=== PATIENT | female | born 1985 | race Caucasian/White ===

== ENCOUNTER 2021-03-30 13:01 | Observation (INO) | payer BC ==
[2021-03-30] MEDS ORDERED: Lorazepam 2 MG/ML VIAL ONE (13:52)
[2021-03-30 13:54] LABS: #Eosinphils 0.1 10x3/uL (0.0-0.5); #Monocytes 0.5 10x3/uL (0.0-1.1); %Basophils 0.7 % (0.0-2.0); %Eosinophils 1.5 % (0.0-6.0); %Lymphocytes 20.2 % (18.0-47.0); %Neutrophils 68.1 % (40.0-75.0); Hemoglobin 12.9 g/dL (12.0-15.5); Mean Corpuscular HGB CONC 33.9 g/dL (32.0-36.0); Mean Corpuscular Hemoglobin 28.9 pg (27.0-33.0); Mean Platelet Volume 9.1 fl (7.4-10.4); Platelet Count 272 10x3/uL (150-450); RBC Distribution Width 13.2 % (11.5-14.5); Red Blood Cell (RBC) Count 4.47 10x6/uL (3.90-5.03); White Blood Cell (WBC) Count 5.9 10x3/uL (3.5-10.5)
[2021-03-30 14:16] LABS: ALT (SGPT) 18 U/L (8-55); AST (SGOT) 20 U/L (5-34); Albumin 4.4 g/dL (3.5-5.0); Alkaline Phosphatase 76 U/L (40-110); Anion Gap 18 mmol/L (10-20); BUN (Urea Nitrogen) 15 mg/dL (7.0-18.7); Bilirubin, Total 0.4 mg/dL (0.2-1.2); CK (CPK) 88 U/L (29-168); Calc. Creatinine Clearance 0 mL/min (70-130); Calcium 9.2 mg/dL (7.8-10.44); Carbon Dioxide 16 mmol/L (22-29); Chloride 109 mmol/L (98-107); Globulin 2.7 g/dL (2.4-3.5); Glucose 92 mg/dL (70-105); Lipase 36 U/L (8-78); Potassium 3.7 mmol/L (3.5-5.1); Protein, Total 7.1 g/dL (6.0-8.3); Sodium 139 mmol/L (136-145)
[2021-03-30] MEDS ORDERED: Diltiazem 125 MG/25 ML ONE (16:22)
[2021-03-30] MEDS ORDERED: Metoprolol Tartrate 5 MG/5 ML VIAL ONE ×3 (17:48→18:34)
[2021-03-30] MEDS ORDERED: Guaifenesin DM 100-10/5 ML UDCUP PO PRN (20:20)
[2021-03-30] MEDS ORDERED: Zolpidem Tartrate 5 MG TAB PO PRN (20:20)
[2021-03-30] MEDS ORDERED: Senokot S 8.6-50 MG TAB PO PRN (20:20)
[2021-03-30] MEDS ORDERED: Acetaminophen 325 MG TAB PO PRN (20:20)
[2021-03-30] MEDS ORDERED: Calcium Carbonate 500 MG ChewTAB PO PRN (20:20)
[2021-03-30] MEDS ORDERED: Potassium Chloride 20 MEQ TAB PO SCH (20:30)
[2021-03-30] MEDS ORDERED: Lactated Ringer's 1,000 ML IV SCH (20:30)
[2021-03-30 20:38] LABS: Bilirubin Neg (Negative); Blood, Urine Negative (Negative); Clarity Clear (Clear); Glucose, Urine (Dipstick) Normal (Negative); Ketone, Urine Negative (Negative); Leukocyte Negative (Negative); Nitrite Negative (Negative); Protein, Urine (Dipstick) Negative (Neg-Trace); Specific Gravity, Urine 1.005 (1.002-1.036); Urobilinogen Normal mg/dL (Less than 2)
[2021-03-30] MEDS ORDERED: Lorazepam 1 MG TAB PO SCH (21:00)
[2021-03-30 21:17] LABS: SARS-CoV-2 NAA Rapid Test DETECTED (NotDetected)
[2021-03-30 21:26] LABS: Magnesium 1.8 mg/dL (1.6-2.6)
[2021-03-30] MEDS ORDERED: Magnesium Sulfate/D5W 1 GM/100 ML BAG IVPB SCH (23:15)
[2021-03-31 02:22] LABS: Pregnancy Test - Urine (BHCG) Negative (Negative); Pregu Control Background? CLEAR/WHITE (CLR/WHITE); Pregu Control Bar Appear? YES (CONTROL BAR); Specific Gravity 1.005 (1.002-1.036)
[2021-03-31 02:31] LABS: Amphetamine Detected (NotDetected); Barbiturates Screen Not Detected (NotDetected); Benzodiazepine Screen Detected (NotDetected); Cocaine Metabolite Screen Not Detected (NotDetected); Methadone Not Detected (NotDetected); Methamphetamine Not Detected (NotDetected); Opiate Screen Not Detected (NotDetected); Oxycodone Screen Not Detected (NotDetected); Phencyclidine (PCP) Not Detected (NotDetected); THC/Cannabinoid Screen Not Detected (NotDetected); Tricyclic Screen Not Detected (NotDetected)
[2021-03-31 02:36] VITALS: BMI 32.9
[2021-03-31 05:25] LABS: Anion Gap 11 mmol/L (10-20); BUN (Urea Nitrogen) 10 mg/dL (7.0-18.7); CK (CPK) 73 U/L (29-168); Calc. Creatinine Clearance 141 mL/min (70-130); Calcium 8.2 mg/dL (7.8-10.44); Carbon Dioxide 21 mmol/L (22-29); Chloride 109 mmol/L (98-107); Glucose 100 mg/dL (70-105); Magnesium 2.3 mg/dL (1.6-2.6); Potassium 3.9 mmol/L (3.5-5.1); Sodium 137 mmol/L (136-145)
[2021-03-31] MEDS ORDERED: Ibuprofen 400 MG TAB PO SCH (14:00)
[2021-03-31] MEDS ORDERED: Lorazepam 1 MG TAB PO SCH (20:30)
[2021-04-01 13:21] VITALS: BP 100/59; TEMP 98.2
== END 2021-04-01 17:05 | disposition home or self-care (01) ==
LOC: CSHERS 13:01 → CSHTELE 03-31 01:02
PROVIDERS: ADMIT Student in an Organized Health Care Education/Training Program; ATTEND Internal Medicine
DX: U07.1 COVID-19 (principal); R07.89 Other chest pain; R00.0 Tachycardia, unspecified; E87.2 Acidosis; F90.9 Attention-deficit hyperactivity disorder, unspecified type; K21.9 Gastro-esophageal reflux disease without esophagitis; Z79.899 Other long term (current) drug therapy; F41.0 Panic disorder [episodic paroxysmal anxiety]; F32.A Depression, unspecified
CPT/HCPCS: 71045; 80048; 80053; 80306; 81003; 81025; 82550; 83690; 83735; 84443; 84484; 85025; 85379; 93005; 93010; 93306; 96367; G0378; J2060; J3475; J7120; U0002

== ENCOUNTER 2023-11-29 10:35 | Outpatient (CLI) | payer BC | END 2023-11-29 10:36 | disposition home or self-care (01) | LOC: CSHULT 10:35 | PROVIDERS: ATTEND Family Medicine | DX: N63.20 Unspecified lump in the left breast, unspecified quadrant (principal) ==

== ENCOUNTER 2024-12-03 08:56 | Outpatient (CLI) | payer BC | END 2024-12-03 08:57 | disposition home or self-care (01) | LOC: CSHMAMMO 08:56 | PROVIDERS: ATTEND Family Medicine | DX: Z12.31 Encounter for screening mammogram for malignant neoplasm of breast (principal); Z80.3 Family history of malignant neoplasm of breast; Z91.89 Other specified personal risk factors, not elsewhere classified | CPT/HCPCS: 77063; 77067 ==